=== PATIENT | male | born 1965 | race Hispanic/Latino ===

== ENCOUNTER 2023-07-11 11:17 | Emergency (ER) | payer OTHER ==
[~2023-07-11] VITALS: Ht 172.7 cm; Wt 63.5 kg
[2023-07-11 11:32] VITALS: BP 141/97; PULSE 68; RESP 18
== END 2023-07-11 14:28 | disposition home or self-care (01) ==
LOC: EDH 11:17
DX: M79.672 Pain in left foot (principal); M79.671 Pain in right foot